=== PATIENT | male | born 1960 | race African-American/Black ===

== ENCOUNTER 2016-09-05 14:34 | Outpatient (CLI) | payer MEDICAID, MEDICARE ==
[2016-09-05 15:28] LABS: Hemoglobin A1c 5.5 % (4.0-6.0)
== END 2016-09-05 14:35 | disposition home or self-care (01) ==
LOC: NAVSJIPCSP 14:34
PROVIDERS: ATTEND Internal Medicine
DX: E78.5 Hyperlipidemia, unspecified (principal); E11.29 Type 2 diabetes mellitus with other diabetic kidney complication
CPT/HCPCS: 80061; 83036

== ENCOUNTER 2016-12-14 10:23 | Outpatient (CLI) | payer MEDICARE ==
[2016-12-14 16:12] LABS: Cardiac Risk 3.6 (Less than 4.5)
[2016-12-14 16:40] LABS: Hemoglobin A1c 5.4 % (4.0-6.0)
== END 2016-12-14 10:24 | disposition home or self-care (01) ==
LOC: NAVSJIPCSP 10:23
PROVIDERS: ATTEND Internal Medicine
DX: E11.29 Type 2 diabetes mellitus with other diabetic kidney complication (principal); E78.5 Hyperlipidemia, unspecified; Z79.899 Other long term (current) drug therapy
CPT/HCPCS: 36415; 80061; 83036

== ENCOUNTER 2017-03-03 20:41 | Emergency (ER) | payer MEDICARE | END 2017-03-03 21:21 | disposition home or self-care (01) | LOC: NAV ERS 20:41 | DX: F03.90 Unspecified dementia, unspecified severity, without behavioral disturbance, psychotic disturbance, mood disturbance, and anxiety (principal); E11.9 Type 2 diabetes mellitus without complications; E78.5 Hyperlipidemia, unspecified; I10 Essential (primary) hypertension; M19.90 Unspecified osteoarthritis, unspecified site; F32.9 Major depressive disorder, single episode, unspecified; F41.9 Anxiety disorder, unspecified; F17.210 Nicotine dependence, cigarettes, uncomplicated; Z79.84 Long term (current) use of oral hypoglycemic drugs; Z79.899 Other long term (current) drug therapy | CPT/HCPCS: 99283 ==

== ENCOUNTER 2017-03-25 19:15 | Emergency (ER) | payer MEDICARE ==
[2017-03-25] MEDS ORDERED: Ibuprofen 800 MG TAB ONE (19:42)
--- NOTE | 2017-03-25 20:05 | RAD ---
THREE VIEWS RIGHT ANKLE: Indication: Right ankle pain after a twisting injury. Comparison: None. FINDINGS: There is soft tissue swelling of the right ankle. No acute fracture or subluxation is evident. There is a well corticated ossific density adjacent to the lateral malleolus likely reflecting sequella o f prior injury. Ankle mortise and talar dome are within normal limits. IMPRESSION: Soft tissue swelling without evidence of acute osseous abnormality. POS: BOBBI
== END 2017-03-25 19:48 | disposition home or self-care (01) ==
LOC: NAV ERS 19:15
DX: S93.401A Sprain of unspecified ligament of right ankle, initial encounter (principal); E11.9 Type 2 diabetes mellitus without complications; E78.5 Hyperlipidemia, unspecified; F41.9 Anxiety disorder, unspecified; F32.9 Major depressive disorder, single episode, unspecified; F17.210 Nicotine dependence, cigarettes, uncomplicated; I10 Essential (primary) hypertension; M19.90 Unspecified osteoarthritis, unspecified site; F20.9 Schizophrenia, unspecified; Z79.84 Long term (current) use of oral hypoglycemic drugs; Z79.899 Other long term (current) drug therapy

== ENCOUNTER 2017-11-27 21:43 | Emergency (ER) | payer MEDICARE, OTHER ==
[2017-11-27] MEDS ORDERED: Sodium Chloride 0.9% 1,000 ML ONE ×2 (22:12→23:01)
[2017-11-27 22:31] LABS: #Basophils 0.1 thou/uL (0.0-0.2); #Eosinphils 0.3 thou/uL (0.0-0.7); #Lymphocytes 2.4 thou/uL (1.20-3.40); #Monocytes 0.9 thou/uL (0.11-0.59); #Neutrophils 5.3 thou/uL (1.40-6.50); %Basophils 0.7 % (0.0-1.0); %Eosinophils 2.9 % (0.0-10.0); %Monocytes 9.6 % (0.0-10.0); %Neutrophils 59.8 % (42.0-75.0); Hemoglobin 12.7 g/dL (14.0-18.0); Mean Corpuscular HGB CONC 34.2 g/dL (32.0-36.0); Mean Corpuscular Hemoglobin 29.2 pg (27.0-31.0); Mean Corpuscular Volume 85.2 fl (80.0-94.0); Platelet Count 326 thou/uL (130-400); RBC Distribution Width 10.3 % (11.5-14.5); Red Blood Cell (RBC) Count 4.35 mill/uL (4.70-6.10); White Blood Cell (WBC) Count 8.9 thou/uL (4.8-10.8)
[2017-11-27 22:49] LABS: ALT (SGPT) 33 U/L (8-55); AST (SGOT) 33 U/L (5-34); Albumin 4.4 g/dL (3.5-5.0); Alkaline Phosphatase 76 U/L (40-150); Anion Gap 11 mmol/L (10-20); BUN (Urea Nitrogen) 6 mg/dL (8.4-25.7); Bilirubin, Total 0.3 mg/dL (0.2-1.2); CK (CPK) 278 U/L (30-200); Calc. Creatinine Clearance 0 mL/min (70-130); Calcium 9.5 mg/dL (7.8-10.44); Carbon Dioxide 28 mmol/L (22-29); Chloride 89 mmol/L (98-107); Estimated GFR-MDRD 75; Glucose 71 mg/dL (70-105); Potassium 3.1 mmol/L (3.5-5.1); Protein, Total 7.4 g/dL (6.0-8.3); Sodium 125 mmol/L (136-145)
[2017-11-27 22:59] LABS: Bilirubin Negative (Negative); Blood, Urine Small (Negative); Clarity Clear (Clear); Glucose, Urine (Dipstick) Negative (Negative); Leukocyte Negative (Negative); Nitrite Negative (Negative); Protein, Urine (Dipstick) Negative (Neg-Trace); Specific Gravity, Urine 1.015 (1.005-1.030); Urobilinogen 0.2 mg/dL (0.2-1.0)
[2017-11-27] MEDS ORDERED: Potassium Chloride 20 MEQ TAB ONE (23:01)
[2017-11-27 23:10] LABS: Amphetamine Not Detected (NotDetected); Barbiturates Screen Not Detected (NotDetected); Benzodiazepine Screen Not Detected (NotDetected); Cocaine Metabolite Screen Not Detected (NotDetected); Medtox Control Line Valid? VALID (VALID); Methadone Not Detected (NotDetected); Methamphetamine Not Detected (NotDetected); Opiate Screen Not Detected (NotDetected); Oxycodone Screen Not Detected (NotDetected); Phencyclidine (PCP) Not Detected (NotDetected); THC/Cannabinoid Screen Not Detected (NotDetected); Tricyclic Screen Not Detected (NotDetected)
[2017-11-27 23:11] LABS: Bacteria/HPF None Seen HPF (None Seen); Squamous Epithelial 0-3 HPF (0-3); WBC/HPF None Seen HPF (0-3)
== END 2017-11-28 00:04 | disposition home or self-care (01) ==
LOC: NAV ERS 21:43
DX: E87.1 Hypo-osmolality and hyponatremia (principal); E87.6 Hypokalemia; D50.9 Iron deficiency anemia, unspecified; E11.9 Type 2 diabetes mellitus without complications; E78.5 Hyperlipidemia, unspecified; I10 Essential (primary) hypertension; M19.90 Unspecified osteoarthritis, unspecified site; F41.9 Anxiety disorder, unspecified; F32.9 Major depressive disorder, single episode, unspecified; F20.9 Schizophrenia, unspecified; F17.210 Nicotine dependence, cigarettes, uncomplicated; Z79.84 Long term (current) use of oral hypoglycemic drugs; Z79.899 Other long term (current) drug therapy
CPT/HCPCS: 80053; 80306; 81003; 81015; 82550; 84443; 85025; 96360; J7050

== ENCOUNTER 2017-12-13 11:02 | Outpatient (CLI) | payer MEDICARE, OTHER ==
--- NOTE | 2017-12-13 11:37 | RAD ---
CERVICAL SPINE 3 VIEWS: Date: 12/13/17 COMPARISON: 03/10/13. HISTORY: Cervical spine pain, neck pain. FINDINGS: Frontal imaging of the cervical spine demonstrates multilevel facet and uncovertebral osteophyte form ation, right greater than left. The lateral exam demonstrates prominent disc space narrowing with deg enerative end plate change and anterior osteophyte formation at C3-4 and C5-6. The degenerative end p late changes have worsened at the C5-6 level when compared to the prior examination. There is also di sc space narrowing at C4-5, C6-7, and C7-T1. No prevertebral soft tissue abnormality noted. Straighte messi of normal cervical lordosis noted. Open-mouth odontoid view demonstrates normal appearing dens and C1-2 articulation. IMPRESSION: Prominent multilevel degenerative change within the cervical spine as described above. POS: BOBBI
== END 2017-12-13 11:03 | disposition home or self-care (01) ==
LOC: NAV RAD 11:02
PROVIDERS: ATTEND Internal Medicine
DX: M54.2 Cervicalgia (principal); M47.892 Other spondylosis, cervical region; M50.31 Other cervical disc degeneration, high cervical region
CPT/HCPCS: 72040

== ENCOUNTER 2018-03-02 20:37 | Emergency (ER) | payer MEDICARE, OTHER ==
[2018-03-02] MEDS ORDERED: Ketorolac Tromethamine 30 MG/ML VIAL ONE (22:01)
== END 2018-03-02 22:17 | disposition home or self-care (01) ==
LOC: NAV ERS 20:37
DX: S33.5XXA Sprain of ligaments of lumbar spine, initial encounter (principal); E11.9 Type 2 diabetes mellitus without complications; E78.5 Hyperlipidemia, unspecified; I10 Essential (primary) hypertension; F41.9 Anxiety disorder, unspecified; F32.9 Major depressive disorder, single episode, unspecified; F20.9 Schizophrenia, unspecified; F17.210 Nicotine dependence, cigarettes, uncomplicated; Z79.899 Other long term (current) drug therapy; X50.0XXA Overexertion from strenuous movement or load, initial encounter
CPT/HCPCS: 96372; J1885

== ENCOUNTER 2018-03-19 18:35 | Emergency (ER) | payer MEDICARE, OTHER ==
[2018-03-19] MEDS ORDERED: Bacitracin Zinc 1 Packet ONE (19:28)
[2018-03-19 19:51] LABS: #Basophils 0.1 thou/uL (0.0-0.2); #Eosinphils 0.4 thou/uL (0.0-0.7); #Lymphocytes 2.2 thou/uL (1.20-3.40); #Monocytes 0.4 thou/uL (0.11-0.59); #Neutrophils 5.3 thou/uL (1.40-6.50); %Eosinophils 5.3 % (0.0-10.0); %Lymphocytes 25.7 % (21.0-51.0); %Monocytes 4.8 % (0.0-10.0); %Neutrophils 63.2 % (42.0-75.0); Hemoglobin 12.7 g/dL (14.0-18.0); Mean Corpuscular HGB CONC 34.1 g/dL (32.0-36.0); Mean Corpuscular Hemoglobin 30.4 pg (27.0-31.0); Mean Corpuscular Volume 89.1 fL (78.0-98.0); Mean Platelet Volume 5.8 fL (7.4-10.4); Platelet Count 343 thou/uL (130-400); RBC Distribution Width 10.6 % (11.5-14.5); Red Blood Cell (RBC) Count 4.18 mill/uL (4.70-6.10); White Blood Cell (WBC) Count 8.4 thou/uL (4.8-10.8)
[2018-03-19 19:52] LABS: ALT (SGPT) 31 U/L (8-55); AST (SGOT) 21 U/L (5-34); Albumin 4.1 g/dL (3.5-5.0); Alkaline Phosphatase 90 U/L (40-150); Anion Gap 15 mmol/L (10-20); BUN (Urea Nitrogen) 5 mg/dL (8.4-25.7); Bilirubin, Total 0.3 mg/dL (0.2-1.2); CK (CPK) 137 U/L (30-200); Calc. Creatinine Clearance 0 mL/min (70-130); Calcium 9.3 mg/dL (7.8-10.44); Carbon Dioxide 23 mmol/L (22-29); Chloride 93 mmol/L (98-107); Estimated GFR-MDRD 66; Globulin 3.1 g/dL (2.4-3.5); Glucose 145 mg/dL (70-105); Potassium 3.3 mmol/L (3.5-5.1); Protein, Total 7.2 g/dL (6.0-8.3); Sodium 128 mmol/L (136-145)
[2018-03-19] MEDS ORDERED: Sodium Chloride 0.9% 2,000 ML ONE (19:59)
[2018-03-19] MEDS ORDERED: Potassium Chloride 20 MEQ TAB ONE (19:59)
[2018-03-19 20:10] LABS: Bilirubin Negative (Negative); Blood, Urine Negative (Negative); Clarity Clear (Clear); Glucose, Urine (Dipstick) Negative (Negative); Leukocyte Negative (Negative); Nitrite Negative (Negative); Protein, Urine (Dipstick) Negative (Neg-Trace); Urobilinogen 0.2 mg/dL (0.2-1.0); pH, Urine 6.5 (5.0-9.0)
[2018-03-19 20:13] LABS: Specific Gravity, Urine 1.004 (1.002-1.036)
== END 2018-03-19 20:36 | disposition home or self-care (01) ==
LOC: NAV ERS 18:35
DX: E87.1 Hypo-osmolality and hyponatremia (principal); E86.9 Volume depletion, unspecified; E11.9 Type 2 diabetes mellitus without complications; E78.5 Hyperlipidemia, unspecified; F41.9 Anxiety disorder, unspecified; F32.9 Major depressive disorder, single episode, unspecified; F20.9 Schizophrenia, unspecified; F17.210 Nicotine dependence, cigarettes, uncomplicated; Z79.899 Other long term (current) drug therapy
CPT/HCPCS: 36416; 80053; 81003; 82550; 85025; 93005; 96360; 96361; J7050

== ENCOUNTER 2018-04-08 19:39 | Emergency (ER) | payer MEDICARE, OTHER ==
[2018-04-08 21:03] LABS: Anion Gap 14 mmol/L (10-20); BUN (Urea Nitrogen) Less than 4 mg/dL (8.4-25.7); Calc. Creatinine Clearance 0 mL/min (70-130); Calcium 9.5 mg/dL (7.8-10.44); Carbon Dioxide 27 mmol/L (22-29); Chloride 98 mmol/L (98-107); Estimated GFR-MDRD 61; Glucose 62 mg/dL (70-105); Potassium 3.6 mmol/L (3.5-5.1); Sodium 135 mmol/L (136-145)
[2018-04-08] MEDS ORDERED: cloNIDine 0.2 MG TAB ONE (21:39)
== END 2018-04-08 22:56 | disposition home or self-care (01) ==
LOC: NAV ERS 19:39
DX: R51 Headache (principal); M54.2 Cervicalgia; I10 Essential (primary) hypertension; E11.9 Type 2 diabetes mellitus without complications; E78.5 Hyperlipidemia, unspecified; F41.9 Anxiety disorder, unspecified; F32.9 Major depressive disorder, single episode, unspecified; F20.9 Schizophrenia, unspecified; F17.210 Nicotine dependence, cigarettes, uncomplicated; Z79.899 Other long term (current) drug therapy
CPT/HCPCS: 80048; 99284

== ENCOUNTER 2018-05-08 11:35 | Emergency (ER) | payer MEDICARE, OTHER | END 2018-05-08 12:15 | disposition home or self-care (01) | LOC: NAV ERS 11:35 | DX: M19.071 Primary osteoarthritis, right ankle and foot (principal); E11.9 Type 2 diabetes mellitus without complications; E78.5 Hyperlipidemia, unspecified; I10 Essential (primary) hypertension; F41.9 Anxiety disorder, unspecified; F32.9 Major depressive disorder, single episode, unspecified; F20.9 Schizophrenia, unspecified; F17.210 Nicotine dependence, cigarettes, uncomplicated; Z79.899 Other long term (current) drug therapy ==

== ENCOUNTER 2018-05-17 21:45 | Emergency (ER) | payer MEDICARE, OTHER | END 2018-05-17 23:31 | disposition home or self-care (01) | LOC: NAV ERS 21:45 | DX: S86.811A Strain of other muscle(s) and tendon(s) at lower leg level, right leg, initial encounter (principal); F41.9 Anxiety disorder, unspecified; F32.9 Major depressive disorder, single episode, unspecified; F20.9 Schizophrenia, unspecified; F17.210 Nicotine dependence, cigarettes, uncomplicated; M19.90 Unspecified osteoarthritis, unspecified site; E78.5 Hyperlipidemia, unspecified; I10 Essential (primary) hypertension; Z79.899 Other long term (current) drug therapy; X58.XXXA Exposure to other specified factors, initial encounter | CPT/HCPCS: 99283 ==

== ENCOUNTER 2019-11-02 08:19 | Emergency (ER) | payer MEDICARE, OTHER ==
[2019-11-02] MEDS ORDERED: Mag-Al Plus 1200 MG/1200 MG/120 MG/30 ML UDCUP ONE (09:25)
[2019-11-02] MEDS ORDERED: Lidocaine Viscous Sol 2% 15 ml UD Cup ONE (09:25)
== END 2019-11-02 08:50 | disposition home or self-care (01) ==
LOC: NAV ERS 08:19
DX: M25.472 Effusion, left ankle (principal); E11.9 Type 2 diabetes mellitus without complications; E78.5 Hyperlipidemia, unspecified; E78.00 Pure hypercholesterolemia, unspecified; I10 Essential (primary) hypertension; M19.90 Unspecified osteoarthritis, unspecified site; E87.1 Hypo-osmolality and hyponatremia; F41.9 Anxiety disorder, unspecified; F32.9 Major depressive disorder, single episode, unspecified; F20.9 Schizophrenia, unspecified; F17.210 Nicotine dependence, cigarettes, uncomplicated
CPT/HCPCS: 99283

== ENCOUNTER 2019-11-27 14:14 | Emergency (ER) | payer MEDICARE, OTHER ==
[2019-11-27] MEDS ORDERED: Sodium Chloride 0.9% 1,000 ML ONE (14:54)
[2019-11-27 15:10] LABS: #Eosinphils 0.2 thou/uL (0.0-0.7); #Lymphocytes 1.3 thou/uL (1.20-3.40); #Monocytes 0.5 thou/uL (0.11-0.59); #Neutrophils 4.9 thou/uL (1.40-6.50); %Basophils 0.5 % (0.0-1.0); %Eosinophils 2.6 % (0.0-10.0); %Lymphocytes 18.9 % (21.0-51.0); %Monocytes 6.8 % (0.0-10.0); %Neutrophils 71.2 % (42.0-75.0); Hemoglobin 13.7 g/dL (14.0-18.0); Mean Corpuscular HGB CONC 32.3 g/dL (32.0-36.0); Mean Corpuscular Hemoglobin 32.4 pg (27.0-31.0); Mean Platelet Volume 6.6 fL (7.4-10.4); Platelet Count 317 thou/uL (130-400); RBC Distribution Width 12.7 % (11.5-14.5); Red Blood Cell (RBC) Count 4.21 mill/uL (4.70-6.10); White Blood Cell (WBC) Count 6.9 thou/uL (4.8-10.8)
[2019-11-27 15:32] LABS: ALT (SGPT) 15 U/L (8-55); AST (SGOT) 14 U/L (5-34); Albumin 4.2 g/dL (3.4-4.8); Alkaline Phosphatase 98 U/L (40-110); Anion Gap 15 mmol/L (10-20); BUN (Urea Nitrogen) 6 mg/dL (8.4-25.7); Bilirubin, Total 0.4 mg/dL (0.2-1.2); Calc. Creatinine Clearance 0 mL/min (70-130); Calcium 9.5 mg/dL (7.8-10.44); Carbon Dioxide 22 mmol/L (23-31); Chloride 101 mmol/L (98-107); Estimated GFR-MDRD 58; Globulin 3.7 g/dL (2.4-3.5); Glucose 164 mg/dL (80-115); Potassium 3.7 mmol/L (3.5-5.1); Protein, Total 7.9 g/dL (5.8-8.1); Sodium 134 mmol/L (136-145)
[2019-11-27 15:39] LABS: Bilirubin Negative (Negative); Blood, Urine Negative (Negative); Clarity Clear (Clear); Glucose, Urine (Dipstick) Negative (Negative); Leukocyte Negative (Negative); Nitrite Negative (Negative); Protein, Urine (Dipstick) Negative (Neg-Trace); Urobilinogen 0.2 mg/dL (Less than 2)
--- NOTE | 2019-11-27 16:59 | CT ---
CT BRAIN WITHOUT CONTRAST: 11/27/19 HISTORY: Weakness, stumbling. COMPARISON: 07/03/13. FINDINGS: No evidence of acute infarct, hemorrhage, midline shift, or abnormal extra-axial fluid collections ar e seen. The ventricular size is normal and the basilar cisterns patent. The bony calvarium is intact. The paranasal sinuses are well aerated. IMPRESSION: No CT evidence of acute intracranial process. POS: MZA
== END 2019-11-27 17:40 | disposition home or self-care (01) ==
LOC: NAV ERS 14:14
DX: D75.89 Other specified diseases of blood and blood-forming organs (principal); R26.9 Unspecified abnormalities of gait and mobility; R53.1 Weakness; E11.9 Type 2 diabetes mellitus without complications; K21.9 Gastro-esophageal reflux disease without esophagitis; E78.5 Hyperlipidemia, unspecified; E78.00 Pure hypercholesterolemia, unspecified; I10 Essential (primary) hypertension; M19.90 Unspecified osteoarthritis, unspecified site; F32.9 Major depressive disorder, single episode, unspecified; F20.9 Schizophrenia, unspecified; F41.9 Anxiety disorder, unspecified; F17.210 Nicotine dependence, cigarettes, uncomplicated; Z79.84 Long term (current) use of oral hypoglycemic drugs; Z79.899 Other long term (current) drug therapy
CPT/HCPCS: 70450; 80053; 81003; 84484; 85025; 93005; 94760; 96360; J7050

== ENCOUNTER 2020-02-11 20:52 | Emergency (ER) | payer MEDICARE, OTHER ==
[2020-02-11] MEDS ORDERED: Sodium Chloride 0.9% 1,000 ML ONE (21:10)
[2020-02-11] MEDS ORDERED: Ondansetron PF 4 MG/2 ML Vial ONE (21:10)
[2020-02-11 21:31] LABS: #Eosinphils 0.2 thou/uL (0.0-0.7); #Lymphocytes 1.9 thou/uL (1.20-3.40); #Monocytes 0.7 thou/uL (0.11-0.59); #Neutrophils 6.8 thou/uL (1.40-6.50); %Basophils 0.5 % (0.0-1.0); %Eosinophils 1.6 % (0.0-10.0); %Monocytes 7.6 % (0.0-10.0); %Neutrophils 70.4 % (42.0-75.0); Mean Corpuscular HGB CONC 32.8 g/dL (32.0-36.0); Mean Corpuscular Hemoglobin 30.3 pg (27.0-31.0); Mean Corpuscular Volume 92.4 fL (78.0-98.0); Mean Platelet Volume 7.3 fL (7.4-10.4); Platelet Count 268 thou/uL (130-400); RBC Distribution Width 10.3 % (11.5-14.5); Red Blood Cell (RBC) Count 4.31 mill/uL (4.70-6.10); White Blood Cell (WBC) Count 9.7 thou/uL (4.8-10.8)
[2020-02-11 21:45] LABS: ALT (SGPT) 12 U/L (8-55); AST (SGOT) 13 U/L (5-34); Albumin 4.4 g/dL (3.4-4.8); Alkaline Phosphatase 82 U/L (40-110); Anion Gap 13 mmol/L (10-20); BUN (Urea Nitrogen) 7 mg/dL (8.4-25.7); Bilirubin, Total 0.2 mg/dL (0.2-1.2); Calc. Creatinine Clearance 0 mL/min (70-130); Calcium 9.4 mg/dL (7.8-10.44); Carbon Dioxide 23 mmol/L (23-31); Chloride 103 mmol/L (98-107); Estimated GFR-MDRD 56; Globulin 3.1 g/dL (2.4-3.5); Glucose 114 mg/dL (80-115); Lipase 33 U/L (8-78); Potassium 3.1 mmol/L (3.5-5.1); Protein, Total 7.5 g/dL (5.8-8.1); Sodium 136 mmol/L (136-145)
[2020-02-11] MEDS ORDERED: Potassium Chloride 20 MEQ TAB ONE (21:51)
== END 2020-02-11 22:20 | disposition home or self-care (01) ==
LOC: NAV ERS 20:52
DX: E87.6 Hypokalemia (principal); R11.2 Nausea with vomiting, unspecified; E11.9 Type 2 diabetes mellitus without complications; K21.9 Gastro-esophageal reflux disease without esophagitis; E78.5 Hyperlipidemia, unspecified; E78.00 Pure hypercholesterolemia, unspecified; I10 Essential (primary) hypertension; M19.90 Unspecified osteoarthritis, unspecified site; F41.9 Anxiety disorder, unspecified; F32.9 Major depressive disorder, single episode, unspecified; F20.9 Schizophrenia, unspecified; F17.210 Nicotine dependence, cigarettes, uncomplicated; Z79.899 Other long term (current) drug therapy
CPT/HCPCS: 80053; 83690; 85025; 96374; J2405; J7050

== ENCOUNTER 2020-04-24 12:38 | Emergency (ER) | payer MEDICARE, OTHER | END 2020-04-24 13:45 | disposition short-term general hospital (02) | LOC: NAV ERS 12:38 | DX: M79.605 Pain in left leg (principal); E11.9 Type 2 diabetes mellitus without complications; K21.9 Gastro-esophageal reflux disease without esophagitis; E78.5 Hyperlipidemia, unspecified; E78.00 Pure hypercholesterolemia, unspecified; I10 Essential (primary) hypertension; M19.90 Unspecified osteoarthritis, unspecified site; F41.9 Anxiety disorder, unspecified; F32.9 Major depressive disorder, single episode, unspecified; F20.9 Schizophrenia, unspecified; F17.210 Nicotine dependence, cigarettes, uncomplicated; Z79.84 Long term (current) use of oral hypoglycemic drugs; Z79.899 Other long term (current) drug therapy | CPT/HCPCS: 99284 ==

== ENCOUNTER 2020-07-19 13:50 | Emergency (ER) | payer MEDICARE, OTHER ==
[2020-07-19 15:08] LABS: #Eosinphils 0.1 thou/uL (0.0-0.7); #Lymphocytes 1.2 thou/uL (1.20-3.40); #Monocytes 0.7 thou/uL (0.11-0.59); %Basophils 0.4 % (0.0-1.0); %Eosinophils 1.5 % (0.0-10.0); %Lymphocytes 11.9 % (21.0-51.0); %Monocytes 7.1 % (0.0-10.0); %Neutrophils 79.2 % (42.0-75.0); Hemoglobin 13.8 g/dL (14.0-18.0); Mean Corpuscular HGB CONC 33.3 g/dL (32.0-36.0); Mean Corpuscular Hemoglobin 29.1 pg (27.0-31.0); Mean Corpuscular Volume 87.5 fL (78.0-98.0); Mean Platelet Volume 6.6 fL (7.4-10.4); Platelet Count 279 thou/uL (130-400); RBC Distribution Width 11.2 % (11.5-14.5); Red Blood Cell (RBC) Count 4.72 mill/uL (4.70-6.10); White Blood Cell (WBC) Count 10.1 thou/uL (4.8-10.8)
--- NOTE | 2020-07-19 15:17 | RAD ---
EXAM: CHEST ONE VIEW HISTORY: Back and neck pain for one day. COMPARISON: 09/22/2010 FINDINGS: The cardiac silhouette and pulmonary vasculature are within normal limits. The lungs are clear. Mild degenerative changes thoracic spine. No significant interval change from prior exam. IMPRESSION: No acute cardiopulmonary process.
--- NOTE | 2020-07-19 15:24 | CT ---
EXAM: CT cervical spine PROVIDED CLINICAL HISTORY: Back and neck pain for one day. TECHNIQUE: Contiguous axial CT images are obtained through the cervical spine from the skull base to the T2-3 le lucy. Sagittal and coronal reformatted images are provided. COMPARISON: None FINDINGS: There is straightening of normal cervical lordotic curvature. Multilevel degenerative change are seen in the cervical spine. There is fusion of the C5 and C6 vertebral bodies. Moderate to severe left-sided neural foraminal narrowing is seen at the C3-4 level with mild right-sided neural foramina l narrowing secondary to disc osteophyte complex. There is otherwise no high-grade neural foraminal narrowing based on bony encroachment throughout the remainder of the cervical spine. Effacement of ve ntral subarachnoid space is present at multiple levels but greatest at the C3-4 and C5-6 levels. No fracture or traumatic subluxation is seen involving the cervical spine. No prevertebral soft tissue swelling apparent. Visualized lung apices appear clear. Visualized thyroid gland demonstrates a grossly normal nonenhanced CT appearance. IMPRESSION: 1. No evidence of fracture or traumatic subluxation. 2. Straightening of normal cervical lordotic curvature which may be related to muscle spasm or positi oning. 3. Multilevel degenerative changes cervical spine..
[2020-07-19 15:27] LABS: ALT (SGPT) 11 U/L (8-55); AST (SGOT) 14 U/L (5-34); Albumin 4.3 g/dL (3.4-4.8); Alkaline Phosphatase 104 U/L (40-110); Anion Gap 16 mmol/L (10-20); BUN (Urea Nitrogen) 6 mg/dL (8.4-25.7); Bilirubin, Total 0.5 mg/dL (0.2-1.2); Calc. Creatinine Clearance 0 mL/min (70-130); Calcium 9.6 mg/dL (7.8-10.44); Carbon Dioxide 24 mmol/L (23-31); Chloride 99 mmol/L (98-107); Globulin 3.6 g/dL (2.4-3.5); Glucose 98 mg/dL (80-115); Potassium 3.7 mmol/L (3.5-5.1); Protein, Total 7.9 g/dL (5.8-8.1); Sodium 135 mmol/L (136-145)
[2020-07-19] MEDS ORDERED: Ketorolac Tromethamine 30 MG/ML VIAL ONE (15:42)
== END 2020-07-19 15:57 | disposition home or self-care (01) ==
LOC: NAV ERS 13:50
DX: M54.2 Cervicalgia (principal); E11.9 Type 2 diabetes mellitus without complications; K21.9 Gastro-esophageal reflux disease without esophagitis; E78.5 Hyperlipidemia, unspecified; E78.00 Pure hypercholesterolemia, unspecified; I10 Essential (primary) hypertension; M19.90 Unspecified osteoarthritis, unspecified site; F17.210 Nicotine dependence, cigarettes, uncomplicated; Z79.899 Other long term (current) drug therapy
CPT/HCPCS: 71045; 72125; 80053; 83605; 85025; 96374; J1885

== ENCOUNTER 2020-11-27 16:07 | Emergency (ER) | payer MEDICARE, OTHER ==
[2020-11-27 16:26] LABS: #Eosinphils 0.2 thou/uL (0.0-0.7); #Monocytes 0.7 thou/uL (0.11-0.59); #Neutrophils 4.3 thou/uL (1.40-6.50); %Basophils 0.7 % (0.0-1.0); %Eosinophils 2.6 % (0.0-10.0); %Lymphocytes 16.1 % (21.0-51.0); %Monocytes 10.9 % (0.0-10.0); %Neutrophils 69.8 % (42.0-75.0); Hemoglobin 12.5 g/dL (14.0-18.0); Mean Corpuscular HGB CONC 31.2 g/dL (32.0-36.0); Mean Corpuscular Hemoglobin 27.7 pg (27.0-31.0); Mean Corpuscular Volume 88.8 fL (78.0-98.0); Mean Platelet Volume 6.5 fL (7.4-10.4); Platelet Count 320 thou/uL (130-400); RBC Distribution Width 11.3 % (11.5-14.5); Red Blood Cell (RBC) Count 4.51 mill/uL (4.70-6.10); White Blood Cell (WBC) Count 6.2 thou/uL (4.8-10.8)
[2020-11-27 16:41] LABS: ALT (SGPT) 19 U/L (8-55); AST (SGOT) 21 U/L (5-34); Albumin 3.9 g/dL (3.4-4.8); Alkaline Phosphatase 94 U/L (40-110); Anion Gap 16 mmol/L (10-20); BUN (Urea Nitrogen) 8 mg/dL (8.4-25.7); Bilirubin, Total 0.5 mg/dL (0.2-1.2); CK (CPK) 207 U/L (30-200); Calc. Creatinine Clearance 0 mL/min (70-130); Calcium 8.7 mg/dL (7.8-10.44); Carbon Dioxide 20 mmol/L (23-31); Chloride 101 mmol/L (98-107); Globulin 2.9 g/dL (2.4-3.5); Glucose 106 mg/dL (80-115); Potassium 4.2 mmol/L (3.5-5.1); Protein, Total 6.8 g/dL (5.8-8.1); Sodium 133 mmol/L (136-145)
[2020-11-27 17:10] LABS: Acetaminophen Less than 6.0 mcg/mL (10.0-30.0); Alcohol Less than 10 mg/dL (Less than 10); Salicylate Less than 8.0 mg/dL (15.0-30.0)
[2020-11-27 18:20] LABS: Bilirubin Negative (Negative); Blood, Urine Negative (Negative); Clarity Clear (Clear); Glucose, Urine (Dipstick) Negative (Negative); Ketone, Urine Negative (Negative); Leukocyte Negative (Negative); Nitrite Negative (Negative); Protein, Urine (Dipstick) Negative (Neg-Trace); Specific Gravity, Urine 1.015 (1.005-1.030)
[2020-11-27 18:28] LABS: Amphetamine Not Detected (NotDetected); Cocaine Metabolite Screen Not Detected (NotDetected); Methamphetamine Not Detected (NotDetected); Opiate Screen Not Detected (NotDetected); Phencyclidine (PCP) Not Detected (NotDetected); THC/Cannabinoid Screen Not Detected (NotDetected)
[2020-11-27 18:29] LABS: Barbiturates Screen Not Detected (NotDetected); Benzodiazepine Screen Not Detected (NotDetected); Medtox Control Line Valid? VALID (VALID); Methadone Not Detected (NotDetected); Oxycodone Screen Not Detected (NotDetected); Tricyclic Screen Not Detected (NotDetected)
== END 2020-11-27 18:41 | disposition home or self-care (01) ==
LOC: NAV ERS 16:07
DX: S00.03XA Contusion of scalp, initial encounter (principal); E86.0 Dehydration; E11.9 Type 2 diabetes mellitus without complications; K21.9 Gastro-esophageal reflux disease without esophagitis; E78.5 Hyperlipidemia, unspecified; I10 Essential (primary) hypertension; F17.210 Nicotine dependence, cigarettes, uncomplicated; Z79.899 Other long term (current) drug therapy; W19.XXXA Unspecified fall, initial encounter
CPT/HCPCS: 70450; 71045; 80053; 80306; 80307; 81003; 82550; 83735; 84484; 85025; 85379; 93005; 94760

== ENCOUNTER 2022-01-29 02:52 | Emergency (ER) | payer OTHER ==
[2022-01-29] MEDS ORDERED: Sodium Chloride 0.9% 1,000 ML ONE (03:08)
[2022-01-29] MEDS ORDERED: Ondansetron PF 4 MG/2 ML Vial ONE (03:08)
[2022-01-29] MEDS ORDERED: Morphine 4 MG/ML VIAL ONE (03:08)
[2022-01-29 03:46] LABS: #Eosinphils 0.1 thou/uL (0.0-0.7); #Monocytes 0.4 thou/uL (0.11-0.59); #Neutrophils 12.5 thou/uL (1.40-6.50); %Basophils 0.3 % (0.0-1.0); %Eosinophils 0.7 % (0.0-10.0); %Lymphocytes 7.4 % (21.0-51.0); %Monocytes 2.9 % (0.0-10.0); %Neutrophils 88.7 % (42.0-75.0); Hemoglobin 14.1 g/dL (14.0-18.0); Mean Corpuscular HGB CONC 32.9 g/dL (32.0-36.0); Mean Corpuscular Hemoglobin 29.3 pg (27.0-31.0); Mean Corpuscular Volume 89.2 fL (78.0-98.0); Mean Platelet Volume 7.2 fL (7.4-10.4); Platelet Count 252 thou/uL (130-400); RBC Distribution Width 11.5 % (11.5-14.5); Red Blood Cell (RBC) Count 4.82 mill/uL (4.70-6.10); White Blood Cell (WBC) Count 14.1 thou/uL (4.8-10.8)
[2022-01-29 04:04] LABS: ALT (SGPT) 31 U/L (8-55); AST (SGOT) 26 U/L (5-34); Alkaline Phosphatase 88 U/L (40-110); Anion Gap 18 mmol/L (10-20); BUN (Urea Nitrogen) 7 mg/dL (8.4-25.7); Bilirubin, Total 0.3 mg/dL (0.2-1.2); Calc. Creatinine Clearance 0 mL/min (70-130); Calcium 9.2 mg/dL (7.8-10.44); Carbon Dioxide 20 mmol/L (23-31); Chloride 104 mmol/L (98-107); Estimated GFR 77; Globulin 2.8 g/dL (2.4-3.5); Glucose 161 mg/dL (80-115); Lipase 28 U/L (8-78); Potassium 4.5 mmol/L (3.5-5.1); Protein, Total 6.8 g/dL (5.8-8.1); Sodium 137 mmol/L (136-145)
[2022-01-29 05:03] LABS: Bilirubin Negative (Negative); Blood, Urine Negative (Negative); Clarity Clear (Clear); Glucose, Urine (Dipstick) Negative (Negative); Ketone, Urine Negative (Negative); Leukocyte Negative (Negative); Nitrite Negative (Negative); Protein, Urine (Dipstick) Negative (Neg-Trace); Urobilinogen 0.2 mg/dL (Less than 2)
[2022-01-29] MEDS ORDERED: Iopamidol 370 76% 100 ML VIAL ONE (09:00)
== END 2022-01-29 06:18 | disposition short-term general hospital (02) ==
LOC: NAV ERS 02:52
DX: R11.2 Nausea with vomiting, unspecified (principal); R10.13 Epigastric pain; E11.9 Type 2 diabetes mellitus without complications; K21.9 Gastro-esophageal reflux disease without esophagitis; E78.5 Hyperlipidemia, unspecified; I10 Essential (primary) hypertension; F17.210 Nicotine dependence, cigarettes, uncomplicated; Z79.899 Other long term (current) drug therapy
CPT/HCPCS: 36415; 71045; 74177; 80053; 81003; 83690; 84484; 85025; 93005; 94760; 96361; 96374; 96375; J2270; J2405; J7050; Q9967

== ENCOUNTER 2022-03-21 15:08 | Emergency (ER) | payer MEDICARE, OTHER ==
[2022-03-21 15:56] LABS: #Eosinphils 0.2 thou/uL (0.0-0.7); #Monocytes 0.6 thou/uL (0.11-0.59); #Neutrophils 5.4 thou/uL (1.40-6.50); %Basophils 0.4 % (0.0-1.0); %Eosinophils 2.6 % (0.0-10.0); %Lymphocytes 24.5 % (21.0-51.0); %Monocytes 7.6 % (0.0-10.0); %Neutrophils 64.9 % (42.0-75.0); Hemoglobin 14.2 g/dL (14.0-18.0); Mean Corpuscular HGB CONC 32.5 g/dL (32.0-36.0); Mean Corpuscular Volume 89.1 fL (78.0-98.0); Mean Platelet Volume 7.5 fL (7.4-10.4); Platelet Count 312 thou/uL (130-400); RBC Distribution Width 11.8 % (11.5-14.5); Red Blood Cell (RBC) Count 4.89 mill/uL (4.70-6.10); White Blood Cell (WBC) Count 8.3 thou/uL (4.8-10.8)
[2022-03-21 16:04] LABS: Prothrombin Time 13.8 sec (12.0-14.7)
[2022-03-21 16:13] LABS: ALT (SGPT) 37 U/L (8-55); AST (SGOT) 27 U/L (5-34); Albumin 4.3 g/dL (3.4-4.8); Alkaline Phosphatase 89 U/L (40-110); Anion Gap 18 mmol/L (10-20); BUN (Urea Nitrogen) 13 mg/dL (8.4-25.7); Bilirubin, Total 0.5 mg/dL (0.2-1.2); Calc. Creatinine Clearance 0 mL/min (70-130); Calcium 9.8 mg/dL (7.8-10.44); Carbon Dioxide 20 mmol/L (23-31); Chloride 106 mmol/L (98-107); Estimated GFR 40; Globulin 3.1 g/dL (2.4-3.5); Glucose 169 mg/dL (80-115); Potassium 4.5 mmol/L (3.5-5.1); Protein, Total 7.4 g/dL (5.8-8.1); Sodium 139 mmol/L (136-145)
[2022-03-21 17:25] LABS: Bilirubin Negative (Negative); Blood, Urine Negative (Negative); Clarity Clear (Clear); Glucose, Urine (Dipstick) Negative (Negative); Ketone, Urine Negative (Negative); Leukocyte Negative (Negative); Nitrite Negative (Negative); Protein, Urine (Dipstick) Negative (Neg-Trace); Specific Gravity, Urine 1.015 (1.005-1.030); Urobilinogen 0.2 mg/dL (Less than 2)
[2022-03-21] MEDS ORDERED: Sodium Chloride 0.9% 2,000 ML ONE (17:47)
== END 2022-03-21 18:05 | disposition home or self-care (01) ==
LOC: NAV ERS 15:08
DX: E86.0 Dehydration (principal); E11.9 Type 2 diabetes mellitus without complications; K21.9 Gastro-esophageal reflux disease without esophagitis; E78.00 Pure hypercholesterolemia, unspecified; I10 Essential (primary) hypertension; F17.210 Nicotine dependence, cigarettes, uncomplicated; Z79.899 Other long term (current) drug therapy
CPT/HCPCS: 80053; 81003; 84484; 85025; 85610; 85730; 93005; 96360; 96361; J7050

== ENCOUNTER 2022-04-27 14:57 | Emergency (ER) | payer OTHER ==
[2022-04-27 15:09] LABS: #Eosinphils 0.1 thou/uL (0.0-0.7); #Lymphocytes 1.3 thou/uL (1.20-3.40); #Monocytes 0.7 thou/uL (0.11-0.59); #Neutrophils 9.4 thou/uL (1.40-6.50); %Basophils 0.4 % (0.0-1.0); %Eosinophils 0.9 % (0.0-10.0); %Lymphocytes 11.2 % (21.0-51.0); %Monocytes 6.2 % (0.0-10.0); %Neutrophils 81.4 % (42.0-75.0); Hemoglobin 14.6 g/dL (14.0-18.0); Mean Corpuscular HGB CONC 33.7 g/dL (32.0-36.0); Mean Corpuscular Hemoglobin 29.8 pg (27.0-31.0); Mean Corpuscular Volume 88.3 fl (78.0-98.0); Mean Platelet Volume 6.5 fL (7.4-10.4); Platelet Count 287 thou/uL (130-400); RBC Distribution Width 11.5 % (11.5-14.5); Red Blood Cell (RBC) Count 4.92 mill/uL (4.70-6.10); White Blood Cell (WBC) Count 11.6 thou/uL (4.8-10.8)
[2022-04-27 15:18] LABS: Prothrombin Time 13.6 sec (12.0-14.7)
[2022-04-27 15:19] LABS: PTT 30.7 sec (22.9-36.1)
[2022-04-27 15:27] LABS: ALT (SGPT) 25 U/L (8-55); AST (SGOT) 26 U/L (5-34); Albumin 4.4 g/dL (3.4-4.8); Alkaline Phosphatase 83 U/L (40-110); Anion Gap 17 mmol/L (10-20); BUN (Urea Nitrogen) 9 mg/dL (8.4-25.7); Bilirubin, Total 0.7 mg/dL (0.2-1.2); CK (CPK) 186 U/L (30-200); Calc. Creatinine Clearance 0 mL/min (70-130); Calcium 9.6 mg/dL (7.8-10.44); Carbon Dioxide 24 mmol/L (23-31); Chloride 103 mmol/L (98-107); Estimated GFR 54; Globulin 3.1 g/dL (2.4-3.5); Glucose 113 mg/dL (80-115); Protein, Total 7.5 g/dL (5.8-8.1); Sodium 141 mmol/L (136-145)
[2022-04-27] MEDS ORDERED: Aspirin Chewable 81 MG TAB ONE (15:31)
[2022-04-27] MEDS ORDERED: Aspirin 300 MG Suppository ONE (15:43)
[2022-04-27 16:14] LABS: Bilirubin Negative (Negative); Blood, Urine Negative (Negative); Clarity Clear (Clear); Glucose, Urine (Dipstick) Negative (Negative); Ketone, Urine Negative (Negative); Leukocyte Negative (Negative); Nitrite Negative (Negative); Protein, Urine (Dipstick) Negative (Neg-Trace); Urobilinogen 0.2 mg/dL (Less than 2); pH, Urine 6.5 (5.0-9.0)
[2022-04-27] MEDS ORDERED: NS 0.9% w/ 20 MEQ KCL 1,000 ML ONE (16:17)
[2022-04-27 16:27] LABS: Amphetamine Not Detected (NotDetected); Barbiturates Screen Not Detected (NotDetected); Benzodiazepine Screen Not Detected (NotDetected); Cocaine Metabolite Screen Not Detected (NotDetected); Medtox Control Line Valid? VALID (VALID); Methadone Not Detected (NotDetected); Methamphetamine Not Detected (NotDetected); Opiate Screen Not Detected (NotDetected); Oxycodone Screen Not Detected (NotDetected); Phencyclidine (PCP) Not Detected (NotDetected); THC/Cannabinoid Screen Not Detected (NotDetected); Tricyclic Screen Not Detected (NotDetected)
[2022-04-27 18:19] LABS: SARS-CoV-2 NAA Rapid Test Not Detected (NotDetected)
== END 2022-04-27 17:53 | disposition short-term general hospital (02) ==
LOC: NAV ERS 14:57
DX: S00.83XA Contusion of other part of head, initial encounter (principal); S00.81XA Abrasion of other part of head, initial encounter; I69.354 Hemiplegia and hemiparesis following cerebral infarction affecting left non-dominant side; R27.0 Ataxia, unspecified; E87.6 Hypokalemia; R29.6 Repeated falls; I10 Essential (primary) hypertension; E11.9 Type 2 diabetes mellitus without complications; E78.00 Pure hypercholesterolemia, unspecified; K21.9 Gastro-esophageal reflux disease without esophagitis; F17.210 Nicotine dependence, cigarettes, uncomplicated; W22.8XXA Striking against or struck by other objects, initial encounter; Y93.01 Activity, walking, marching and hiking
CPT/HCPCS: 36416; 51701; 70450; 71045; 80053; 80306; 81003; 82550; 84484; 85025; 85610; 85730; 93005; 96365; J3480; U0002

== ENCOUNTER 2022-05-24 09:57 | Emergency (ER) | payer OTHER ==
[2022-05-24 11:06] LABS: #Eosinphils 0.3 thou/uL (0.0-0.7); #Lymphocytes 1.6 thou/uL (1.20-3.40); #Monocytes 0.6 thou/uL (0.11-0.59); #Neutrophils 3.6 thou/uL (1.40-6.50); %Basophils 0.8 % (0.0-1.0); %Eosinophils 4.3 % (0.0-10.0); %Lymphocytes 26.6 % (21.0-51.0); %Monocytes 8.9 % (0.0-10.0); %Neutrophils 59.4 % (42.0-75.0); Hemoglobin 15.4 g/dL (14.0-18.0); Mean Corpuscular HGB CONC 32.9 g/dL (32.0-36.0); Mean Corpuscular Hemoglobin 29.6 pg (27.0-31.0); Mean Platelet Volume 7.1 fL (7.4-10.4); Platelet Count 243 10x3/uL (130-400); RBC Distribution Width 11.5 % (11.5-14.5); Red Blood Cell (RBC) Count 5.21 mill/uL (4.70-6.10); White Blood Cell (WBC) Count 6.1 10x3/uL (4.8-10.8)
[2022-05-24 11:20] LABS: ALT (SGPT) 24 U/L (8-55); AST (SGOT) 21 U/L (5-34); Albumin 4.2 g/dL (3.4-4.8); Alkaline Phosphatase 81 U/L (40-110); Anion Gap 19 mmol/L (10-20); BUN (Urea Nitrogen) 6 mg/dL (8.4-25.7); Bilirubin, Total 0.5 mg/dL (0.2-1.2); Calc. Creatinine Clearance 0 mL/min (70-130); Calcium 10.1 mg/dL (7.8-10.44); Carbon Dioxide 21 mmol/L (23-31); Chloride 104 mmol/L (98-107); Estimated GFR 63; Globulin 2.9 g/dL (2.4-3.5); Glucose 116 mg/dL (80-115); Potassium 3.7 mmol/L (3.5-5.1); Protein, Total 7.1 g/dL (5.8-8.1); Sodium 140 mmol/L (136-145)
[2022-05-24 11:54] LABS: Prothrombin Time 13.7 sec (12.0-14.7)
[2022-05-24 11:55] LABS: PTT 33.2 sec (22.9-36.1)
[2022-05-24 12:25] LABS: Bilirubin Negative (Negative); Blood, Urine Negative (Negative); Clarity Clear (Clear); Glucose, Urine (Dipstick) Negative (Negative); Ketone, Urine Negative (Negative); Leukocyte Negative (Negative); Nitrite Negative (Negative); Protein, Urine (Dipstick) Negative (Neg-Trace); Specific Gravity, Urine 1.015 (1.005-1.030); Urobilinogen 0.2 mg/dL (Less than 2); pH, Urine 6.5 (5.0-9.0)
== END 2022-05-24 13:10 | disposition home or self-care (01) ==
LOC: NAV ERS 09:57
DX: R53.1 Weakness (principal); E11.9 Type 2 diabetes mellitus without complications; K21.9 Gastro-esophageal reflux disease without esophagitis; E78.00 Pure hypercholesterolemia, unspecified; I10 Essential (primary) hypertension; F17.210 Nicotine dependence, cigarettes, uncomplicated; Z79.899 Other long term (current) drug therapy
CPT/HCPCS: 36416; 70450; 71045; 80053; 81003; 84484; 85025; 85610; 85730; 93005; 36415-59

== ENCOUNTER 2022-09-29 13:48 | Emergency (ER) | payer OTHER ==
[2022-09-29 14:41] LABS: #Eosinphils 0.1 thou/uL (0.0-0.7); #Lymphocytes 1.1 thou/uL (1.20-3.40); #Monocytes 0.7 thou/uL (0.11-0.59); #Neutrophils 7.8 thou/uL (1.40-6.50); %Basophils 0.2 % (0.0-1.0); %Eosinophils 0.6 % (0.0-10.0); %Lymphocytes 10.9 % (21.0-51.0); %Monocytes 7.5 % (0.0-10.0); %Neutrophils 80.8 % (42.0-75.0); Hemoglobin 12.3 g/dL (14.0-18.0); Mean Corpuscular Hemoglobin 29.5 pg (27.0-31.0); Mean Corpuscular Volume 89.4 fl (78.0-98.0); Mean Platelet Volume 7.1 fL (7.4-10.4); Platelet Count 257 10x3/uL (130-400); RBC Distribution Width 11.2 % (11.5-14.5); Red Blood Cell (RBC) Count 4.18 mill/uL (4.70-6.10); White Blood Cell (WBC) Count 9.6 10x3/uL (4.8-10.8)
[2022-09-29 14:59] LABS: ALT (SGPT) 29 U/L (8-55); AST (SGOT) 30 U/L (5-34); Albumin 4.3 g/dL (3.4-4.8); Alkaline Phosphatase 72 U/L (40-110); Anion Gap 17 mmol/L (10-20); BUN (Urea Nitrogen) 25 mg/dL (8.4-25.7); Bilirubin, Total 0.7 mg/dL (0.2-1.2); Calc. Creatinine Clearance 0 mL/min (70-130); Calcium 9.9 mg/dL (7.8-10.44); Carbon Dioxide 19 mmol/L (23-31); Chloride 103 mmol/L (98-107); Estimated GFR 34; Globulin 2.7 g/dL (2.4-3.5); Glucose 78 mg/dL (80-115); Potassium 4.5 mmol/L (3.5-5.1); Sodium 134 mmol/L (136-145)
== END 2022-09-29 16:16 | disposition home or self-care (01) ==
LOC: NAV ERS 13:48
DX: S00.83XA Contusion of other part of head, initial encounter (principal); E11.9 Type 2 diabetes mellitus without complications; K21.9 Gastro-esophageal reflux disease without esophagitis; R26.89 Other abnormalities of gait and mobility; F17.210 Nicotine dependence, cigarettes, uncomplicated; Z86.73 Personal history of transient ischemic attack (TIA), and cerebral infarction without residual deficits; Z79.899 Other long term (current) drug therapy; W18.30XA Fall on same level, unspecified, initial encounter
CPT/HCPCS: 36415; 70450; 72125; 80053; 85025; 93005

== ENCOUNTER 2022-10-04 03:07 | Emergency (ER) | payer OTHER ==
[2022-10-04 04:01] LABS: #Eosinphils 0.1 thou/uL (0.0-0.7); #Lymphocytes 1.1 thou/uL (1.20-3.40); #Monocytes 0.7 thou/uL (0.11-0.59); #Neutrophils 4.9 thou/uL (1.40-6.50); %Basophils 0.5 % (0.0-1.0); %Eosinophils 1.4 % (0.0-10.0); %Lymphocytes 16.2 % (21.0-51.0); %Monocytes 10.4 % (0.0-10.0); %Neutrophils 71.6 % (42.0-75.0); Hemoglobin 12.7 g/dL (14.0-18.0); Mean Corpuscular HGB CONC 34.5 g/dL (32.0-36.0); Mean Corpuscular Hemoglobin 30.7 pg (27.0-31.0); Mean Corpuscular Volume 88.9 fl (78.0-98.0); Mean Platelet Volume 6.8 fL (7.4-10.4); Platelet Count 266 10x3/uL (130-400); RBC Distribution Width 10.8 % (11.5-14.5); Red Blood Cell (RBC) Count 4.14 mill/uL (4.70-6.10); White Blood Cell (WBC) Count 6.8 10x3/uL (4.8-10.8)
[2022-10-04 04:02] LABS: Bilirubin Negative (Negative); Blood, Urine Negative (Negative); Clarity Clear (Clear); Glucose, Urine (Dipstick) Negative (Negative); Ketone, Urine Negative (Negative); Leukocyte Negative (Negative); Nitrite Negative (Negative); Protein, Urine (Dipstick) Negative (Neg-Trace); Specific Gravity, Urine 1.015 (1.005-1.030)
[2022-10-04 04:09] LABS: Amphetamine Not Detected (NotDetected); Barbiturates Screen Not Detected (NotDetected); Benzodiazepine Screen Not Detected (NotDetected); Cocaine Metabolite Screen Not Detected (NotDetected); Methadone Not Detected (NotDetected); Methamphetamine Not Detected (NotDetected); Opiate Screen Not Detected (NotDetected); Oxycodone Screen Not Detected (NotDetected); Phencyclidine (PCP) Not Detected (NotDetected); THC/Cannabinoid Screen Not Detected (NotDetected); Tricyclic Screen Not Detected (NotDetected)
[2022-10-04 04:14] LABS: Acetaminophen Less than 10.0 mcg/mL (10.0-30.0); Alcohol Less than 10 mg/dL (Less than 10); Salicylate Less than 8.0 mg/dL (15.0-30.0)
[2022-10-04 04:17] LABS: ALT (SGPT) 41 U/L (8-55); AST (SGOT) 45 U/L (5-34); Albumin 4.5 g/dL (3.4-4.8); Alkaline Phosphatase 72 U/L (40-110); Anion Gap 16 mmol/L (10-20); BUN (Urea Nitrogen) 11 mg/dL (8.4-25.7); Bilirubin, Total 0.9 mg/dL (0.2-1.2); Calc. Creatinine Clearance 0 mL/min (70-130); Calcium 9.8 mg/dL (7.8-10.44); Carbon Dioxide 20 mmol/L (23-31); Chloride 99 mmol/L (98-107); Estimated GFR 60; Globulin 2.7 g/dL (2.4-3.5); Glucose 107 mg/dL (80-115); Potassium 3.9 mmol/L (3.5-5.1); Protein, Total 7.2 g/dL (5.8-8.1); Sodium 131 mmol/L (136-145)
== END 2022-10-04 10:57 | disposition home or self-care (01) ==
LOC: NAV ERS 03:07
DX: R44.3 Hallucinations, unspecified (principal); I10 Essential (primary) hypertension; E11.9 Type 2 diabetes mellitus without complications; F17.210 Nicotine dependence, cigarettes, uncomplicated; K21.9 Gastro-esophageal reflux disease without esophagitis; Z79.84 Long term (current) use of oral hypoglycemic drugs; Z79.899 Other long term (current) drug therapy
CPT/HCPCS: 36415; 80053; 80306; 80307; 81003; 84443; 85025; 99285

== ENCOUNTER 2023-01-02 14:36 | Emergency (ER) | payer MEDICARE, MEDICAID ==
[2023-01-02] MEDS ORDERED: HYDROcodone/Acetaminophen 10/325 mg Tablet ONE (15:04)
[2023-01-02] MEDS ORDERED: Ibuprofen 800 MG TAB ONE (15:05)
== END 2023-01-02 15:57 | disposition home or self-care (01) ==
LOC: NAV ERS 14:36
DX: M54.50 Low back pain, unspecified (principal); I10 Essential (primary) hypertension; E11.9 Type 2 diabetes mellitus without complications; K21.9 Gastro-esophageal reflux disease without esophagitis; F17.210 Nicotine dependence, cigarettes, uncomplicated; Z79.84 Long term (current) use of oral hypoglycemic drugs; Z79.899 Other long term (current) drug therapy
CPT/HCPCS: 72100

== ENCOUNTER 2023-05-04 12:59 | Emergency (ER) | payer OTHER ==
[2023-05-04] MEDS ORDERED: methylPREDNISolone Acetate 40 mg/ml Vial ONE (13:49)
== END 2023-05-04 14:22 | disposition home or self-care (01) ==
LOC: NAV ERS 12:59
DX: R22.0 Localized swelling, mass and lump, head (principal); T50.905A Adverse effect of unspecified drugs, medicaments and biological substances, initial encounter; F17.210 Nicotine dependence, cigarettes, uncomplicated; I10 Essential (primary) hypertension; E11.9 Type 2 diabetes mellitus without complications; K21.9 Gastro-esophageal reflux disease without esophagitis; M19.90 Unspecified osteoarthritis, unspecified site; Z86.73 Personal history of transient ischemic attack (TIA), and cerebral infarction without residual deficits; Z79.84 Long term (current) use of oral hypoglycemic drugs; Z79.899 Other long term (current) drug therapy
CPT/HCPCS: 96372; 99283; J1030

== ENCOUNTER 2023-05-30 13:55 | Emergency (ER) | payer OTHER ==
[2023-05-30] MEDS ORDERED: Ibuprofen 800 MG TAB ONE (14:09)
[2023-05-30] MEDS ORDERED: Acetaminophen 500 MG TAB ONE (14:09)
[2023-05-30] MEDS ORDERED: Methocarbamol 500 MG TAB ONE (15:05)
== END 2023-05-30 16:04 | disposition home or self-care (01) ==
LOC: NAV ERS 13:55
DX: G44.209 Tension-type headache, unspecified, not intractable (principal); E11.9 Type 2 diabetes mellitus without complications; K21.9 Gastro-esophageal reflux disease without esophagitis; I10 Essential (primary) hypertension; F17.210 Nicotine dependence, cigarettes, uncomplicated; Z79.82 Long term (current) use of aspirin; Z79.899 Other long term (current) drug therapy
CPT/HCPCS: 70450

== ENCOUNTER 2024-04-27 05:37 | Emergency (ER) | payer MEDICARE, OTHER ==
[2024-04-27] MEDS ORDERED: Acetaminophen 325 MG TAB ONE (06:58)
== END 2024-04-27 07:43 | disposition home or self-care (01) ==
LOC: NAV ERS 05:37
DX: S50.02XA Contusion of left elbow, initial encounter (principal); E11.9 Type 2 diabetes mellitus without complications; I10 Essential (primary) hypertension; F17.210 Nicotine dependence, cigarettes, uncomplicated; W22.8XXA Striking against or struck by other objects, initial encounter
CPT/HCPCS: 29105

== ENCOUNTER 2024-05-14 16:34 | Emergency (ER) | payer MEDICARE, OTHER ==
[2024-05-14] MEDS ORDERED: Bacitracin 1 PK ONE (17:52)
== END 2024-05-14 19:06 | disposition home or self-care (01) ==
LOC: NAV ERS 16:34
DX: S40.021A Contusion of right upper arm, initial encounter (principal); S60.511A Abrasion of right hand, initial encounter; R03.0 Elevated blood-pressure reading, without diagnosis of hypertension; E11.9 Type 2 diabetes mellitus without complications; F17.210 Nicotine dependence, cigarettes, uncomplicated; K21.9 Gastro-esophageal reflux disease without esophagitis; Z79.899 Other long term (current) drug therapy; Z79.82 Long term (current) use of aspirin; Z86.73 Personal history of transient ischemic attack (TIA), and cerebral infarction without residual deficits; W01.0XXA Fall on same level from slipping, tripping and stumbling without subsequent striking against object, initial encounter
CPT/HCPCS: 99283

== ENCOUNTER 2025-03-25 20:57 | Emergency (ER) | payer OTHER | END 2025-03-25 22:04 | disposition home or self-care (01) | LOC: NAV ERS 20:57 | DX: K59.00 Constipation, unspecified (principal); N28.1 Cyst of kidney, acquired; E11.9 Type 2 diabetes mellitus without complications; K21.9 Gastro-esophageal reflux disease without esophagitis; I10 Essential (primary) hypertension; F17.210 Nicotine dependence, cigarettes, uncomplicated; Z86.73 Personal history of transient ischemic attack (TIA), and cerebral infarction without residual deficits; Z79.82 Long term (current) use of aspirin; Z79.84 Long term (current) use of oral hypoglycemic drugs; Z79.899 Other long term (current) drug therapy | CPT/HCPCS: 74019; 74176 ==